=== PATIENT | female | born 1955 | race Caucasian/White ===

== ENCOUNTER → 2023-10-25 07:42 | Outpatient (REF) | payer MEDICARE, OTHER, SELFPAY | LOC: RAD 07:42 | PROVIDERS: ATTENDING PHYSICIAN Orthopaedic Surgery | DX: M25.562 Pain in left knee (principal); M25.561 Pain in right knee | CPT/HCPCS: 73562 ==

== ENCOUNTER → 2024-01-27 14:01 | Outpatient (REF) | payer MEDICARE, OTHER, SELFPAY | LOC: WDC 14:01 | PROVIDERS: ATTENDING PHYSICIAN Obstetrics & Gynecology; FAMILY PHYSICIAN Physician Assistant | DX: Z12.31 Encounter for screening mammogram for malignant neoplasm of breast (principal) | CPT/HCPCS: 77063; 77067 ==

== ENCOUNTER 2024-08-27 06:09 | Inpatient (IN) | payer MEDICARE, OTHER, SELFPAY ==
[2024-07-28 08:47] LABS: Hematocrit 40.2 % (37.0-47.0); Hemoglobin 13.6 g/dL (12.0-16.0); Mean Corp Hgb Conc. 33.8 g/dL (33.0-37.0); Mean Corpuscular Hgb 31.9 pg (27.0-31.0); Mean Corpuscular Volume 94.4 fL (81.0-99.0); Mean Platelet Volume 9.9 fL (7.4-10.4); Platelet Count 250 10^3/uL (130-400); Red Blood Cell Count 4.26 10^6/uL (4.20-5.40); Red Cell Dist. Width 12.3 % (11.5-14.5); White Blood Cell Count 7.4 10^3/uL (4.8-10.8)
[2024-07-28 09:47] LABS: Glycohemoglobin (HgbA1c) 5.1 % (4.0-5.6)
[2024-07-28 10:35] LABS: ALT (SGPT) 18 U/L (0-35); AST (SGOT) 22 U/L (14-36); Albumin 4.3 g/dl (3.5-5.0); Alkaline Phosphatase 51 U/L (38-126); Blood Urea Nitrogen 17 mg/dl (7-17); Calcium 9.5 mg/dl (8.4-10.2); Carbon Dioxide 25 mmol/L (22-30); Chloride 106 mmol/L (98-107); Glucose 82 mg/dl (70-99); Potassium 4.4 mmol/L (3.5-5.1); Sodium 140 mmol/L (135-145); Total Bilirubin 0.6 mg/dl (0.2-1.3); Total Protein 6.7 g/dl (6.3-8.2); eGFR > 60.00
[2024-07-28 13:42] VITALS: BMI 26.4
[2024-08-24 14:09] VITALS: BMI 26.4
[2024-08-27] VITALS (9 sets, daily range): BP systolic 103–132; BP diastolic 61–77; BMI 26.4
[2024-08-27] MEDS: MOBIC 15 MG PO (06:25)
[2024-08-27] MEDS: TYLENOL 650 MG PO ×5 (06:25→23:36)
[2024-08-27] MEDS: NORMOSOL-R/PLASMALYTE-A 1000 IV ×2 (06:25→10:24)
--- NOTE | 2024-08-27 07:11 | W.DS.TRANS ---
DC Summary - [employer]
-
Discharge Instructions:
Sleep Apnea Risk Low
Discharge Diagnosis/Procedures R TKA 08/27/24
Diet As tolerated
Activity With Walker
Driving Restrictions No driving
Other Services PT
Instructions:
Stand-Alone Forms: Total Hip/Knee Replacement D/C
Changes to Home Medications: Yes
Discharge Medications:
DC Medications w/original date entered in [facility]
Calcium 600 mg PO DAILY 08/21/21
Vitamin D3 (cholecalciferol): 25 mcg PO DAILY 08/21/21
glucosamine sulf dipotassium Cl 500 mg-chondroitin sulf 400 mg tablet 2 ea PO DAILY 08/21/21
adizpsjy-ysw-xdcas ac 400 mcg-calcium carb 500 mg-vit K1 20 mcg tablet (Women's 50 Plus Daily Formula) 1 ea PO DAILY 08/21/21
acetaminophen 325 mg tablet (Tylenol) 650 mg (2 x 325 mg) PO QID #1 tab 08/27/24
aspirin 325 mg tablet 325 mg PO DAILY blood clot prevention #1 tab 08/27/24
dexamethasone 4 mg tablet 4 mg PO BID inflammation #6 tabs 08/27/24
docusate sodium 100 mg capsule (Colace) 100 mg PO BID stool softner #1 cap 08/27/24
magnesium hydroxide 400 mg/5 mL oral suspension (Milk of Magnesia) 30 ml PO HS PRN Constipation #1 mL 08/27/24
mupirocin 2 % topical ointment 1 applic topical BID 08/27/24
ondansetron 4 mg disintegrating tablet 4 mg PO Q6H PRN n/v #20 tabs 08/27/24
oxycodone 5 mg tablet 5 mg PO Q6H PRN 1 tab moderate pain, 2 tabs severe pain #30 tabs 08/27/24
sennosides 8.6 mg tablet (Senokot) 17.2 mg (2 x 8.6 mg) PO BID laxative #2 tabs 08/27/24
Home Medication Changes
aspirin 325 mg tablet 325 mg PO DAILY blood clot prevention #1 tab 08/27/24
dexamethasone 4 mg tablet 4 mg PO BID inflammation #6 tabs 08/27/24
docusate sodium 100 mg capsule (Colace) 100 mg PO BID stool softner #1 cap 08/27/24
magnesium hydroxide 400 mg/5 mL oral suspension (Milk of Magnesia) 30 ml PO HS PRN Constipation #1 mL 08/27/24
mupirocin 2 % topical ointment 1 applic topical BID 08/27/24
ondansetron 4 mg disintegrating tablet 4 mg PO Q6H PRN n/v #20 tabs 08/27/24
oxycodone 5 mg tablet 5 mg PO Q6H PRN 1 tab moderate pain, 2 tabs severe pain #30 tabs 08/27/24
sennosides 8.6 mg tablet (Senokot) 17.2 mg (2 x 8.6 mg) PO BID laxative #2 tabs 08/27/24
Pending Results: No
[2024-08-27] MEDS: ROXICODONE 5 MG PO (09:38)
[2024-08-27] MEDS: TYLENOL PO (10:56)
--- NOTE | 2024-08-27 10:57 | PTCARENOTE ---
Pt arrived to [address] [place] [address] PACU s/p R TKR. Pt AAOx3, NV intact with mild sensation loss from spinal. Pt states no pain at this time. Oriented to call matt and room, bed locked, in lowest position.
--- NOTE | 2024-08-27 16:07 | W.PN.UPDATE ---
Update Note
Progress Note Update
Patient doing well s/p R TKR. Has been OOB. VSS. Pulm: nonlabored. CV: regular. RLE: NVI distally. Calf soft. Dressing CDI. Able to fully extend. Postop xrays as expected. ASA for DVT Prophylaxis. Plan for discharge home tomorrow with
outpatient PT.
[2024-08-27] MEDS: ANCEF 5 IV ×2 (16:15→23:33)
[2024-08-27] MEDS: ASPIRIN 325 MG PO (17:19)
[2024-08-27] MEDS: ROXICODONE 2.5 MG PO (18:11)
[2024-08-27] MEDS: COLACE 100 MG PO (19:59)
[2024-08-27] MEDS: SENOKOT 17.2 MG PO (19:59)
[2024-08-27] MEDS: TORADOL 15 MG IV (20:00)
[2024-08-27] MEDS: DECADRON 4 MG IV (20:00)
[2024-08-27] MEDS: BACTROBAN 2% OINTMENT 1 APPLIC NASAL (20:00)
[2024-08-27] MEDS: ULTRAM 50 MG PO (20:00)
[2024-08-27] MEDS: PEPCID 20 MG PO (21:20)
[2024-08-27] MEDS: NEURONTIN 300 MG PO (21:21)
[2024-08-28] MEDS: TYLENOL 650 MG PO ×3 (04:48→12:11)
[2024-08-28 07:08] VITALS: BP 128/63
--- NOTE | 2024-08-28 07:21 | W.PN.ORTHO ---
Today's Communication / Plan
-
Plan for discharge home with outpatient PT
Assessment
.
Distal Motor Intact: Yes
Dressing:
Clean, dry and intact.
Assessment:
Stable s/p R TKR
Plan
.
Surgery / Date: 08/27/24
DVT Prophylaxis: Aspirin
Activity:
Out of bed.
PT/OT
Discharge Plan: Home w/ Outpatient PT
Subjective
.
.:
Patient resting comfortably. Doing well. Pain controlled. OOB last night.
Vital Signs and Labs
.
Vital Signs and Labs:
Lab Results
07/28/24 08:26
07/28/24 08:27
Temp Pulse Resp BP Pulse Ox
98.3 F 67 16 123/69 96
08/27/24 23:15 08/27/24 23:15 08/27/24 23:15 08/27/24 23:15 08/27/24 23:15
Non-invasive Hgb result: 12.8
Physical Exam
-
Pulm: nonlabored
CV: regular
RLE: Dressing CDI. NVI distally. Calf soft. Able to fully extend.
[2024-08-28] MEDS: BACTROBAN 2% OINTMENT 1 APPLIC NASAL (09:21)
[2024-08-28] MEDS: ULTRAM 50 MG PO (09:22)
[2024-08-28] MEDS: COLACE 100 MG PO (09:23)
[2024-08-28] MEDS: ASPIRIN 325 MG PO (09:25)
[2024-08-28] MEDS: SENOKOT 17.2 MG PO (09:25)
[2024-08-28] MEDS: TORADOL 15 MG IV (09:26)
[2024-08-28] MEDS: DECADRON 4 MG IV (09:28)
--- NOTE | 2024-08-28 10:26 | W.PN.ORTHO ---
Today's Communication / Plan
-
d/c
Assessment
.
Distal Motor Intact: Yes
Dressing:
Clean, dry and intact.
Plan
.
Surgery / Date: R TKA 08/27/24 Dr. Zheng
DVT Prophylaxis: Aspirin
Activity:
Out of bed.
PT/OT
Discharge Plan: Home w/ Outpatient PT
Subjective
.
.:
Patient resting comfortably.
Vital Signs and Labs
.
Vital Signs and Labs:
Lab Results
07/28/24 08:26
07/28/24 08:27
Temp Pulse Resp BP Pulse Ox
97.5 F 67 16 128/63 95
08/28/24 07:08 08/28/24 07:08 08/28/24 07:08 08/28/24 07:08 08/28/24 07:08
Non-invasive Hgb result: 12.8
Physical Exam
-
HEENT: No pallor, cyanosis, or jaundice. Throat clear.
NECK: Supple. No JVD.
RESPIRATORY: Lungs clear to auscultation.
CVS: S1, S2 normal. RRR.� No murmur, rub or gallop.
ABDOMEN: Soft, non-tender. No distension. BS+/normal.
EXTREMITIES: strength equal, no calf pain with palpation
CANCER PROGRAM COORDINATOR: AOx3. No focal deficits. refractory manager grossly intact
--- NOTE | 2024-08-28 11:40 | CM ---
Met with pt at bedside
Pt reports she lives with her and son in a 2 story home; 1 step to enter, 15 steps to 2nd fl. Powder room - 1 step
Independent, employed PT, drives
DME - raised toilet seat, rolling walker, shower chair, shower rails
SNF/HH - denies past hx
Has ride at d/c
PCP - Lucila Saul
Ph[facility] - [facility] [place]
Has outpatient PT appointment on Thursday 08/31 at the ambulatory center. Has Rx. Has transportation
Given IMM
Plan - home with outpatient PT
[2024-08-28 12:35] VITALS: PULSE 71; O2SAT 97
[2024-08-28 12:38] VITALS: BP 132/70
== END 2024-08-28 13:10 | disposition home or self-care (01) | DRG 470 ==
LOC: 2 SOUTH 06:09
PROVIDERS: ADMITTING PHYSICIAN Orthopaedic Surgery; FAMILY PHYSICIAN Physician Assistant; REFERRING PHYSICIAN Internal Medicine Cardiovascular Disease
PROC: 0SRC0J9 Replacement of Right Knee Joint with Synthetic Substitute, Cemented, Open Approach (ICD-10-PCS; 2024-08-27)
DX: M17.11 Unilateral primary osteoarthritis, right knee (principal); I35.9 Nonrheumatic aortic valve disorder, unspecified; R26.2 Difficulty in walking, not elsewhere classified; Z88.2 Allergy status to sulfonamides; Z79.82 Long term (current) use of aspirin
CPT/HCPCS: 36415; 73560; 80053; 83036; 85027; 87070; 97110; 97116; 97162; 97166; 97530; 97535; C1713; C1776

== ENCOUNTER 2024-09-09 11:20 | Outpatient (RCR) | payer MEDICARE, OTHER, SELFPAY | END 2024-09-09 23:59 | disposition home or self-care (01) | LOC: RPT 11:20 | PROVIDERS: ATTENDING PHYSICIAN Orthopaedic Surgery; FAMILY PHYSICIAN Physician Assistant | DX: Z47.1 Aftercare following joint replacement surgery (principal); Z73.6 Limitation of activities due to disability; M62.81 Muscle weakness (generalized); R26.2 Difficulty in walking, not elsewhere classified; R26.89 Other abnormalities of gait and mobility; Z96.651 Presence of right artificial knee joint | CPT/HCPCS: 97010; 97110; 97116; 97140; 97162; 97530 ==

== ENCOUNTER 2024-10-07 11:10 | Outpatient (RCR) | payer MEDICARE, OTHER, SELFPAY | END 2024-10-07 23:59 | disposition home or self-care (01) | LOC: RPT 11:10 | PROVIDERS: ATTENDING PHYSICIAN Orthopaedic Surgery; FAMILY PHYSICIAN Physician Assistant | DX: Z47.1 Aftercare following joint replacement surgery (principal); Z73.6 Limitation of activities due to disability; M62.81 Muscle weakness (generalized); R26.2 Difficulty in walking, not elsewhere classified; R26.89 Other abnormalities of gait and mobility; Z96.651 Presence of right artificial knee joint | CPT/HCPCS: 97010; 97110; 97112; 97530 ==

== ENCOUNTER 2024-10-21 13:12 | Outpatient (RCR) | payer MEDICARE, OTHER, SELFPAY | END 2024-11-06 06:24 | disposition home or self-care (01) | LOC: RPT 13:12 | PROVIDERS: ATTENDING PHYSICIAN Orthopaedic Surgery; FAMILY PHYSICIAN Physician Assistant | DX: Z47.1 Aftercare following joint replacement surgery (principal); Z73.6 Limitation of activities due to disability; M62.81 Muscle weakness (generalized); R26.2 Difficulty in walking, not elsewhere classified; R26.89 Other abnormalities of gait and mobility; Z96.651 Presence of right artificial knee joint | CPT/HCPCS: 97110; 97530 ==

== ENCOUNTER → 2024-11-11 08:02 | Outpatient (REF) | payer MEDICARE, OTHER, SELFPAY ==
[2024-11-11 09:00] LABS: Urine Albumin Negative (Neg - Trace); Urine Bilirubin Negative (Negative); Urine Character Clear (Clear); Urine Color Yellow; Urine Glucose Negative (Negative); Urine Ketone Negative (Negative); Urine Leukocyte Negative (Negative); Urine Nitrite Negative (Negative); Urine Occult Blood 1+ (Negative); Urine Specific Gravity 1.015 (<1.030); Urine Urobilinogen Negative (Neg - 1+)
[2024-11-11 09:01] LABS: % Eosinophils 4.7 % (0-6); % Immature Granulocytes 0.2 % (0-0.5); % Lymphocytes 24.3 % (20.5-51.1); % Neutrophils 62.8 % (42.2-75.2); Absolute Basophils 0.1 10^3/uL (0-0.2); Absolute Eosinophils 0.4 10^3/uL (0-0.7); Absolute Monocytes 0.6 10^3/uL (0.1-0.6); Absolute Neutrophils 5.1 10^3/uL (1.4-6.5); Hematocrit 42.2 % (37.0-47.0); Hemoglobin 14.2 g/dL (12.0-16.0); Mean Corp Hgb Conc. 33.6 g/dL (33.0-37.0); Mean Corpuscular Hgb 31.3 pg (27.0-31.0); Mean Corpuscular Volume 93.2 fL (81.0-99.0); Mean Platelet Volume 9.9 fL (7.4-10.4); Nucleated Red Blood Cells % 0 %; Platelet Count 276 10^3/uL (130-400); Red Blood Cell Count 4.53 10^6/uL (4.20-5.40); Red Cell Dist. Width 12.3 % (11.5-14.5); White Blood Cell Count 8.1 10^3/uL (4.8-10.8)
[2024-11-11 10:19] LABS: Urine Red Blood Cell 0-2 /HPF (0-2)
[2024-11-11 10:20] LABS: Urine White Cell 0-2 /HPF (0-5)
[2024-11-11 12:07] LABS: ALT (SGPT) 17 U/L (0-35); AST (SGOT) 20 U/L (14-36); Albumin 4.7 g/dl (3.5-5.0); Alkaline Phosphatase 73 U/L (38-126); Blood Urea Nitrogen 18 mg/dl (7-17); Calcium 9.5 mg/dl (8.4-10.2); Carbon Dioxide 25 mmol/L (22-30); Chloride 107 mmol/L (98-107); Glucose 67 mg/dl (70-99); HDL Cholesterol 64 mg/dl; LDL Cholesterol, Calculated 131 mg/dl; Potassium 4.6 mmol/L (3.5-5.1); Sodium 141 mmol/L (135-145); Total Bilirubin 0.7 mg/dl (0.2-1.3); Total Cholesterol 210 mg/dl (50-199); Total Protein 7.2 g/dl (6.3-8.2); Triglyceride 78 mg/dl (10-149); Very Low Density Lipoprotein 15 mg/dl (0-30); eGFR > 60.00
[2024-11-11 12:16] LABS: TSH Reflex To Free T4 1.09 uIU/ml (0.47-4.68)
== END ==
LOC: REG 08:02
PROVIDERS: ATTENDING PHYSICIAN Physician Assistant
DX: R80.9 Proteinuria, unspecified (principal); K21.9 Gastro-esophageal reflux disease without esophagitis; E66.9 Obesity, unspecified; Z13.1 Encounter for screening for diabetes mellitus; Z13.0 Encounter for screening for diseases of the blood and blood-forming organs and certain disorders involving the immune mechanism; Z79.899 Other long term (current) drug therapy
CPT/HCPCS: 36415; 80053; 80061; 81003; 81015; 82306; 84443; 85025

== ENCOUNTER 2025-04-06 07:36 | Outpatient (RCR) | payer MEDICARE, OTHER, SELFPAY | END 2025-04-06 23:59 | disposition home or self-care (01) | LOC: RPT 07:36 | PROVIDERS: ATTENDING PHYSICIAN Physical Medicine & Rehabilitation; FAMILY PHYSICIAN Physician Assistant | DX: M54.12 Radiculopathy, cervical region (principal); M48.061 Spinal stenosis, lumbar region without neurogenic claudication; M54.16 Radiculopathy, lumbar region; Z73.6 Limitation of activities due to disability; R26.89 Other abnormalities of gait and mobility | CPT/HCPCS: 97110; 97162 ==

== ENCOUNTER → 2025-04-20 15:39 | Outpatient (REF) | payer MEDICARE, OTHER, SELFPAY | LOC: WDC 15:39 | PROVIDERS: ATTENDING PHYSICIAN Physician Assistant | DX: Z12.31 Encounter for screening mammogram for malignant neoplasm of breast (principal) | CPT/HCPCS: 77063; 77067 ==

== ENCOUNTER 2025-05-06 11:48 | Outpatient (RCR) | payer MEDICARE, OTHER, SELFPAY | END 2025-05-06 23:59 | disposition home or self-care (01) | LOC: RPT 11:48 | PROVIDERS: ATTENDING PHYSICIAN Physical Medicine & Rehabilitation; FAMILY PHYSICIAN Physician Assistant | DX: M54.12 Radiculopathy, cervical region (principal); M48.061 Spinal stenosis, lumbar region without neurogenic claudication; M54.16 Radiculopathy, lumbar region; Z73.6 Limitation of activities due to disability; R26.89 Other abnormalities of gait and mobility | CPT/HCPCS: 97010; 97110; 97140 ==

== ENCOUNTER → 2025-08-03 13:01 | Outpatient (REF) | payer MEDICARE, OTHER, SELFPAY | LOC: RCS 13:01 | PROVIDERS: ATTENDING PHYSICIAN Internal Medicine Cardiovascular Disease; FAMILY PHYSICIAN Physician Assistant | DX: I35.9 Nonrheumatic aortic valve disorder, unspecified (principal) | CPT/HCPCS: 93306 ==